=== PATIENT | female | born 1955 | race Caucasian/White ===

== ENCOUNTER 2021-03-24 07:37 | Emergency (ER) | payer OTHER ==
[2021-03-24 07:51] VITALS: BMI 47.8
[2021-03-24 09:58] LABS: BASO % 0.7 % (0-2.0); EOS % 0.4 % (0-4.5); HEMATOCRIT 32.8 % (32.4-45.2); HEMOGLOBIN 11.2 GM/dL (10.7-15.3); LYMPH % 11.5 % (8-40); MCH 30.1 pg (25.7-33.7); MCHC 34.2 g/dl (32.0-36.0); MEAN CELL VOLUME 88.1 fl (80-96); MEAN PLT VOLUME 8.4 fl (7.5-11.1); MONO % 5.8 % (3.8-10.2); NEUT % 81.6 % (42.8-82.8); PLATELET COUNT 236 10^3/uL (134-434); RBC 3.72 M/mm3 (3.60-5.2); RDW 14.1 % (11.6-15.6); WHITE BLOOD COUNT 8.6 K/mm3 (4.0-10.0)
[2021-03-24 10:24] LABS: CHLORIDE 109 mmol/L (98-107); SODIUM 141 mmol/L (136-145)
[2021-03-24 10:26] LABS: ALBUMIN 3.1 g/dl (3.4-5.0); ANION GAP 6 MMOL/L (8-16); CALCIUM 8.2 mg/dL (8.5-10.1); CO2 26 mmol/L (21-32); GLUCOSE,RANDOM 96 mg/dL (74-106)
[2021-03-24 10:28] LABS: BLOOD UREA NITROGEN 17.9 mg/dL (7-18)
[2021-03-24 10:29] LABS: SGOT/AST 20 U/L (15-37); SGPT/ALT 20 U/L (13-61)
[2021-03-24 10:31] LABS: BILIRUBIN,TOTAL 0.6 mg/dL (0.2-1)
[2021-03-24 10:32] LABS: ALK PHOS 67 U/L (45-117)
[2021-03-24 10:34] LABS: TOT PROT 6.6 g/dl (6.4-8.2)
[2021-03-24 13:09] VITALS: BP 104/56; PULSE 71; TEMP 98.1
== END 2021-03-24 13:09 | disposition home or self-care (01) ==
LOC: JER 07:37
DX: J01.90 Acute sinusitis, unspecified (principal)
CPT/HCPCS: 36415; 71045-TC-FY; 80053; 82962; 84484; 85025; 93005; 93010; 93970-TC; 99285-25